=== PATIENT | male | born 1940 | race Caucasian/White ===

== ENCOUNTER → 2016-11-27 | Outpatient (CLI) | payer OTHER ==
--- NOTE | 2016-11-27 15:19 | PCVCIMAG ---
APPROVED REPORT Study performed: 11/27/2016 14:02:10 EXAM: Comprehensive 2D, Doppler, and color-flow Echocardiogram Status: routine Other Information Study Quality: Fair Technically limited study due to poor parasternal windows. Risk Factors: Cardiac Risk Factors: HTN, Hyperlipidemia Indications CAD 2D Dimensions LVEF(%): 62.78 (>50%) IVSd: 13.47 (7-11mm) LVDd: 28.45 mm PWd: 12.38 (7-11mm)Ascending Ao: 36.18 (22-36mm) LVDs: 19.18 (25-40mm) Left Atrium: 36.49 (27-40mm) Aortic Root: 33.60 mm LV Single Plane 4CH: 58.76 % LV Single Plane 2CH: 56.16 %Morelos's LVEF: 57.46 % Biplane EF: 57.8 % Volumes Left Atrial Volume (Systole) Single Plane 4CH: 46.40 mLSingle Plane 2CH: 73.25 mL LA ESV Index: 30.00 mL/m2 Aortic Valve AoV Peak Johan.: 1.51 m/s AO Peak Gr.: 9.08 mmHgLVOT Max P.05 mmHg LVOT Max V: 1.12 m/s Mitral Valve E/A Ratio: 0.6 MV Decel. Time: 175.82 ms MV E Max Johan.: 0.65 m/s MV A Johan.: 1.04 m/s MV PHT: 50.99 ms IVRT: 103.81 ms Pulmonary Valve PV Peak Johan.: 1.10 m/sPV Peak Gr.: 4.81 mmHg Pulmonary Vein P Vein S: 0.26 m/sP Vein A: 0.34 m/s P Vein D: 0.35 m/sP Vein A Dur.: 138.4 msec P Vein S/D Ratio: 0.74 Tricuspid Valve TR Peak Johan.: 2.39 m/s TR Peak Gr.: 22.94 mmHg Left Ventricle The left ventricle is normal size. There is normal LV segmental wall motion. Mild concentric left ventricular hypertrophy. Left ventricular systolic function is normal. The left ventricular ejection fraction is within the normal range. LVEF is 55-60%. Grade I - abnormal relaxation pattern. Right Ventricle The right ventricle is normal size. The right ventricular systolic function is normal. Atria The left atrium size is normal. The right atrium size is normal. Aortic Valve The aortic valve is normal in structure. No aortic regurgitation is present. There is no aortic valvular stenosis. Mitral Valve The mitral valve is normal in structure. There is no mitral valve regurgitation noted. No evidence of mitral valve stenosis. Tricuspid Valve The tricuspid valve is normal in structure. Mild tricuspid regurgitation with PAP of 32 mmHg. Pulmonic Valve The pulmonary valve is normal in structure. There is mild pulmonic valvular regurgitation. Great Vessels The aortic root is normal in size. IVC is normal in size and collapses with >50% inspiration Pericardium There is no pericardial effusion. <Conclusion> The left ventricle is normal size. Mild concentric left ventricular hypertrophy. Left ventricular systolic function is normal. Grade I - abnormal relaxation pattern. The right ventricle is normal size. The left atrium size is normal. There is no aortic valvular stenosis. The mitral valve is normal in structure. Mild tricuspid regurgitation with PAP of 32 mmHg.
== END | disposition home or self-care (01) ==
LOC: PCVCIMAG 13:52
PROVIDERS: ATTEND Internal Medicine Cardiovascular Disease
DX: I07.1 Rheumatic tricuspid insufficiency (principal); I37.1 Nonrheumatic pulmonary valve insufficiency; I44.0 Atrioventricular block, first degree; I25.10 Atherosclerotic heart disease of native coronary artery without angina pectoris; I10 Essential (primary) hypertension; E78.00 Pure hypercholesterolemia, unspecified; K21.9 Gastro-esophageal reflux disease without esophagitis; Z87.891 Personal history of nicotine dependence; Z95.1 Presence of aortocoronary bypass graft; Z95.5 Presence of coronary angioplasty implant and graft; Z79.82 Long term (current) use of aspirin; Z88.8 Allergy status to other drugs, medicaments and biological substances
CPT/HCPCS: 93005; 93306; G0463